=== PATIENT | female | born 1945 | race Caucasian/White ===

== ENCOUNTER 2020-05-17 10:26 | Outpatient (CLI) | payer MEDICARE, SELFPAY ==
--- NOTE | 2020-05-17 10:33 | USCV_ITS ---
Valerie Umana Age: 74 Gender: F : 1945 Exam Date: 05/17/2020 10:54 Ordering Phys: Brandy Miller Technologist: Darius Blanco [place] [facility] [place]: chest pain BP: 130 / 80 HR: 54 Rhythm: Sinus Technical Quality: Adequate MEASUREMENTS (Male / Female) Normal Values 2D ECHO LV Diastolic Diameter PLAX 4.1 cm 4.2 - 5.9 / 3.9 - 5.3 cm LV Systolic Diameter PLAX 2.5 cm IVS Diastolic Thickness 1.2 cm 0.6 - 1.0 / 0.6 - 0.9 cm IVS Systolic Thickness 1.5 cm LVPW Diastolic Thickness 1.0 cm 0.6 - 1.0 / 0.6 - 0.9 cm LVPW Systolic Thickness 1.3 cm LVOT Diameter 2.1 cm LV Ejection Fraction 2D Teich 71.3 % LV Ejection Fraction MOD 2C 64.2 % LV Ejection Fraction 2C AL 65.0 % LA Diameter 4.3 cm LA Width 3.5 cm LA Height 5.3 cm RA Width 3.9 cm RA Height 4.6 cm Aorta at Sinotubular Diameter 2.9 cm M-MODE LV Diastolic Diameter MM 5.3 cm 4.2 - 5.9 / 3.9 - 5.3 cm LV Systolic Diameter MM 3.2 cm LV Ejection Fraction MM Teich 70.4 % IVS Diastolic Thickness MM 1.1 cm 0.6 - 1.0 / 0.6 - 0.9 cm IVS Systolic Thickness MM 1.6 cm LVPW Diastolic Thickness MM 1.4 cm 0.6 - 1.0 / 0.6 - 0.9 cm LVPW Systolic Thickness MM 1.9 cm RV Diastolic Diameter MM 1.4 cm Aortic Annulus Diameter 2.7 cm LA Ao Ratio MM 1.6 MV E Point Septal Separation 1.2 cm DOPPLER AV Peak Velocity 139.0 cm/s LVOT Peak Velocity 138.0 cm/s AV Area Cont Eq vti 3.4 cm squared AV Area Cont Eq pk 3.4 cm squared MV Peak Velocity 102.0 cm/s MV Area PHT 2.7 cm squared Mitral E to A Ratio 0.6 MV E' Velocity 8.0 cm/s Mitral E to MV E' Ratio 8.9 Mitral E to LV E' Lateral Ratio 7.5 Mitral E to LV E' Septal Ratio 11.1 TR Peak Velocity 243.0 cm/s TR Peak Gradient 23.6 mmHg PV Peak Velocity 108.0 cm/s FINDINGS Left Ventricle Normal left ventricular size and systolic function, EF 64 %. No regional wall motion abnormalities. Grade I/IV diastolic dysfunction (abnormal relaxation filling pattern), normal to mildly elevated filling pressures. Mild left ventricular hypertrophy. Right Ventricle Normal right ventricular size and systolic function. Right Atrium Mildly increased right atrial size. Left Atrium Mildly increased left atrial size. Mitral Valve Trace to mild mitral valve regurgitation. Thickened mitral valve. Aortic Valve Thickened aortic valve. Tricuspid Valve No gross abnormalities noted Pulmonic Valve No gross abnormalities noted Pericardium No pericardial effusion. Aorta Normal aortic annulus size. CONCLUSIONS Normal left ventricular size and systolic function, EF 64 %. No regional wall motion abnormalities. Grade I/IV diastolic dysfunction (abnormal relaxation filling pattern), normal to mildly elevated filling pressures. Mild left ventricular hypertrophy. Mild biatrial enlargement Thickened aortic and mitral valves. Trace to mild mitral valve regurgitation. There is no pericardial effusion. There are no intracardiac masses. Comparison with the previous study is difficult because of the difference in the technical quality. Dr Giana Urrutia MD [facility] (Electronically Signed) Final Date: 17 May 2020 23:17 S
== END 2020-05-17 10:27 | disposition home or self-care (01) ==
LOC: RAD 10:32
PROVIDERS: PCP Physician Assistant; Visit Provider Physician Assistant
DX: R60.9 Edema, unspecified (principal); R07.9 Chest pain, unspecified; I08.0 Rheumatic disorders of both mitral and aortic valves
CPT/HCPCS: 93306

== ENCOUNTER 2020-06-29 17:54 | Emergency (ER) | payer MEDICARE, SELFPAY ==
[2020-06-29 18:01] VITALS: BP 161/101; PULSE 71; RESP 18; TEMP 36.2; O2SAT 95; BMI 35.6
--- NOTE | 2020-06-29 18:06 | XR_ITS ---
WS: [id number] Portable AP upright chest, 06/29/2020 Clinical Data: htn Comparison: Portable chest, 07/12/2018. Findings: No nodules, masses or effusions are seen. The heart is normal. The pulmonary vascularity is not increased. No pneumonia or pneumothorax is seen. The aortic arch and descending aorta show minim al tortuosity. There is an orthopedic anchor in the right humeral head. XR/XR chest 1V portable [id number] Impression: Atherosclerosis.
--- NOTE | 2020-06-29 18:07 | ECG_ITS ---
[facility] Test Date: 2020-06-29 Pat Name: Valerie Umana Department: Room: Gender: Female [place] Nurse: : 1945 Requested By: Gia Thomas Order Number: [id number] Laci MD: Flora Mi M.D. Measurements Intervals [place] Rate: 66 P: 29 TX: 165 QRS: 24 QRSD: 96 T: 38 QT: 398 QTc: 419 Interpretive Statements SINUS RHYTHM Compared to ECG 07/12/2018 20:15:51 No significant changes Electronically Signed On 06-29-2020 18:51:22 CDT by Flora Mi M.D. [id number]
--- NOTE | 2020-06-29 18:15 | ED_ITS ---
HPI - General Adult General: Chief complaint: General Medical Stated complaint: high bp Time Seen by Provider: 06/29/20 18:05 History of Present Illness: HPI narrative: This patient is a 75-year-old female who is very active. 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 She thought she just gotten too hot in the clients house and went on and did the rest of her visits that day. When she got home she was standing in her kitchen making a cheesecake when she again felt very weak and like she was going to pass out. She sat down quickly and was able to avoid passing out. She got her blood pressure cuff and checked her blood pressure. She was alarmed that it was 178/100. She went to the urgent care at [facility] where she also goes for primary care and they sent her to the ER. She has a history of 2 stents that were placed a couple of years ago. She said with that she presented with vague symptoms and not chest pain. She denies any chest pain, shortness of breath, vomiting, fevers today. Associated symptoms: Deny chest pain, dyspnea, headache(s), malaise, nausea, rash or vomiting Review of Systems General: Reports: 10 or more systems reviewed and unremarkable except in HPI and below Const: Reports: fatigue; Denies: fever(s), chills or malaise Eyes: Denies: change in vision ENMT: Denies: odynophagia Card: Denies: chest pain or swelling of feet/ankles Resp: Denies: dyspnea, productive cough or non-productive cough GI: Denies: abdominal pain, nausea or vomiting : Denies: flank pain or difficulty voiding Musc: Denies: neck pain or back pain Skin/Breast: Denies: rash Neuro: Reports: weakness in extremities; Denies: headache(s) or numbness in extremities [place]/Lymph: Denies: easy bruising or easy bleeding Physical Exam Const: COMMON NORMALS: no acute distress, patient oriented x3, no limitations and alert GENERAL APPEARANCE: cooperative and comfortable HENMT: HEAD & SCALP: normal to inspection FACE & SINUS: normal facial exam Eye: GENERAL EYE: appearance normal, both eyes and all related structures Neck/C-Spine: COMMON NORMALS: supple, no meningeal signs and no JVD Chest: COMMONS NORMALS: normal inspection of the chest Resp: COMMON NORMALS: normal respiratory effort, No use of accessory muscles and clear to auscultation bilaterally AUSCULTATION: clear to auscultation bilaterally Cardio: COMMON NORMALS: no JVD, regular rate, regular rhythm and No murmurs present (Cardio) RATE: regular rate RHYTHM: regular rhythm GI: COMMON NORMALS: Normal to inspection, nondistended, normoactive bowel sounds present, Soft to palpation and non-tender INSPECTION: Yes normal to inspection AUSCULTATION: Yes normoactive bowel sounds PALPATION: Yes Soft to palpation Back/Pelvis: COMMON NORMALS: thoracic and lumbar spine normal to inspection Extremity: COMMON NORMALS: normal to inspection Neuro: COMMON NORMALS: patient oriented x3, moves all extremities, no focal motor deficits and no sensory deficits noted SENSORIUM/ORIENTATION: Yes alert MENINGEAL SIGNS: Yes no meningeal signs Psych: COMMON NORMALS: mental status grossly normal, cooperative and normal affect Skin: COMMON NORMALS: no rashes or lesions noted and turgor normal GENERAL SKIN EXAM: no rashes or lesions noted and turgor normal Course ED course: Work-up was unremarkable on this patient. There is no evidence that there is any cardiac ischemia. Her blood pressure was elevated on initial presentation but came down and she was in the ED. The rest of her vital signs were good. We discussed that she might need to rest a little more often and to make sure that she is drinking plenty of fluids. She was able to ambulate around the ED without any difficulty. She will follow-up closely with her primary care doctor for further evaluation of these episodes and will return to the ED if worse anyway. Vital Signs: Vital signs: Vital Signs Temperature 97.2 F L 06/29/20 18:01 Pulse Rate 63 06/29/20 21:06 Respiratory Rate 14 06/29/20 21:06 Blood Pressure 131/85 06/29/20 21:06 Pulse Oximetry 95 06/29/20 21:06 MDM - General Adult Lab Data: Labs: Lab Results 06/29/20 06/29/20 06/29/20 Range/Units 18:30 18:30 18:30 WBC 8.9 (4.0-10.0) 10^3/ uL RBC 4.35 (4.1-5.3) 10^6/u L Hgb 13.2 (11.5-15.3) g/dL Hct 40.8 (37.0-47.0) % MCV 93.8 (81-99) fL MCH 30.3 (28.0-34.0) pg MCHC 32.4 (30.0-36.0) g/dL RDW 12.3 (12.1-15.1) % Plt Count 230 (130-400) 10^3/c mm MPV 10.0 (7.4-10.4) fL Neut % (Auto) 75.1 % Lymph % (Auto) 14.6 % [place] % (Auto) 7.6 % Eos % (Auto) 1.8 % Baso % (Auto) 0.7 % Neut # (Auto) 6.70 (1.8-7.7) 10^3/u L Lymph # (Auto) 1.3 (0.8-4.8) 10^3/u L [place] # (Auto) 0.7 (0.2-0.9) 10^3/u L Eos # (Auto) 0.2 (0.0-0.8) 10^3/u L Baso # (Auto) 0.1 (0.0-0.1) 10^3/u L Nucleated RBC % (a uto) 0 % Nucleated RBCs # 0.0 /100WBC Sodium 139 (136-145) mmol/L Potassium 4.0 (3.5-5.1) mmol/L Chloride 103 (98-107) mmol/L Carbon Dioxide 24 (22-29) mmol/L Anion Gap 16.0 (5-19) BUN 9 (8-23) mg/dL Creatinine 0.6 (0.5-0.9) mg/dL GFR Calculation Not Reportable Glucose 107 (65-115) mg/dL Calculated Osmolal ity 284 L (285-295) mOsm/k g Calcium 9.4 (8.5-10.5) mg/dL Total Bilirubin 0.3 (0.15-1.2) mg/dL AST 20 (0-32) U/L ALT 17 (0-33) U/L Alkaline Phosphata se 75 (35-105) IU/L Troponin T Baselin e 8 (0-10) ng/L Troponin T 120 Min torres martinez (0-10) ng/L Delta Troponin T (0-10) ABS# Total Protein 7.9 (6.6-8.7) g/dL Albumin 4.7 (3.5-5.2) g/dL Globulin 3.2 (1.3-4.6) g/dL 06/29/20 Range/Units 20:05 WBC (4.0-10.0) 10^3/ uL RBC (4.1-5.3) 10^6/u L Hgb (11.5-15.3) g/dL Hct (37.0-47.0) % MCV (81-99) fL MCH (28.0-34.0) pg MCHC (30.0-36.0) g/dL RDW (12.1-15.1) % Plt Count (130-400) 10^3/c mm MPV (7.4-10.4) fL Neut % (Auto) % Lymph % (Auto) % [place] % (Auto) % Eos % (Auto) % Baso % (Auto) % Neut # (Auto) (1.8-7.7) 10^3/u L Lymph # (Auto) (0.8-4.8) 10^3/u L [place] # (Auto) (0.2-0.9) 10^3/u L Eos # (Auto) (0.0-0.8) 10^3/u L Baso # (Auto) (0.0-0.1) 10^3/u L Nucleated RBC % (a uto) % Nucleated RBCs # /100WBC Sodium (136-145) mmol/L Potassium (3.5-5.1) mmol/L Chloride (98-107) mmol/L Carbon Dioxide (22-29) mmol/L Anion Gap (5-19) BUN (8-23) mg/dL Creatinine (0.5-0.9) mg/dL GFR Calculation Glucose (65-115) mg/dL Calculated Osmolal ity (285-295) mOsm/k g Calcium (8.5-10.5) mg/dL Total Bilirubin (0.15-1.2) mg/dL AST (0-32) U/L ALT (0-33) U/L Alkaline Phosphata se (35-105) IU/L Troponin T Baselin e (0-10) ng/L Troponin T 120 Min torres martinez 7.26 (0-10) ng/L Delta Troponin T -0.74 L (0-10) ABS# Total Protein (6.6-8.7) g/dL Albumin (3.5-5.2) g/dL Globulin (1.3-4.6) g/dL Discharge Plan Discharge Patient Disposition: Home Condition: Stable Prescriptions: No Action lisinopril See Rx Instructions .ROUTE .COMPLEX RF: 0 Aspirin Low Dose 81 mg Tablet,Delayed Release (Dr/Ec) 81 mg PO DAILY RF: 0 Multiple Vitamin, Womens Tablet 1 tab PO DAILY RF: 0 Probiotic 15 billion cell Capsule 1 cap PO DAILY RF: 0 Discharge Orders: Discharge Order (Routine); Ordered 06/29/20 Ordered By: Gia Burgos Referrals: Brandy Miller PA [Primary Care Provider] - Discharge Diet: Usual diet Discharge Activity: Resume usual activity Patient Instructions: Chronic Hypertension (ED), Near Syncope (ED) Activity Restrictions/Additional Instructions: Rest more than usual. Make sure you are drinking enough fluids. Follow-up with your primary care provider within the next few days. Return to the ED if you have any further symptoms or episodes of nearly passing out. Continue your regular blood pressure medicine for now. 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
[2020-06-29 18:39] LABS: Basophils # 0.1 10^3/uL (0.0-0.1); Basophils % 0.7 %; Eosinophils # 0.2 10^3/uL (0.0-0.8); Eosinophils % 1.8 %; Hematocrit 40.8 % (37.0-47.0); Hemoglobin 13.2 g/dL (11.5-15.3); Lymphocytes # 1.3 10^3/uL (0.8-4.8); Lymphocytes % 14.6 %; Mean Corpuscular HGB Conc 32.4 g/dL (30.0-36.0); Mean Corpuscular Hemoglobin 30.3 pg (28.0-34.0); Mean Corpuscular Volume 93.8 fL (81-99); Monocytes # 0.7 10^3/uL (0.2-0.9); Monocytes % 7.6 %; Neutrophils % 75.1 %; Nucleated Red Blood Cells % 0 %; Platelet Count 230 10^3/cmm (130-400); Red Blood Count 4.35 10^6/uL (4.1-5.3); Red Cell Distribution Width 12.3 % (12.1-15.1); White Blood Count 8.9 10^3/uL (4.0-10.0)
[2020-06-29 19:03] VITALS: BP 133/74; PULSE 74; RESP 14; O2SAT 97
[2020-06-29 19:05] LABS: Alanine Aminotransferase 17 U/L (0-33); Albumin Level 4.7 g/dL (3.5-5.2); Alkaline Phosphatase 75 IU/L (35-105); Aspartate Amino Transferase 20 U/L (0-32); Blood Urea Nitrogen 9 mg/dL (8-23); Calcium 9.4 mg/dL (8.5-10.5); Carbon Dioxide 24 mmol/L (22-29); Chloride 103 mmol/L (98-107); Globulin 3.2 g/dL (1.3-4.6); Glucose 107 mg/dL (65-115); Osmolality Calculated 284 mOsm/kg (285-295); Sodium 139 mmol/L (136-145); Total Bilirubin 0.3 mg/dL (0.15-1.2); Total Protein 7.9 g/dL (6.6-8.7)
[2020-06-29 19:06] LABS: Troponin(5th) Baseline 8 ng/L (0-10)
[2020-06-29 20:20] VITALS: BP 134/89; PULSE 74; RESP 14; O2SAT 96
[2020-06-29 20:32] LABS: Troponin 5 2HR 7.26 ng/L (0-10)
[2020-06-29 20:49] LABS: Troponin 5 2HR Delta -0.74 ABS# (0-10)
[2020-06-29 21:06] VITALS: BP 131/85; PULSE 63; RESP 14; O2SAT 95
== END 2020-06-29 21:07 | disposition home or self-care (01) ==
PROVIDERS: Emergency Provider Emergency Medicine; PCP Physician Assistant
DX: I10 Essential (primary) hypertension (principal); Z79.82 Long term (current) use of aspirin
CPT/HCPCS: 12345; 36415; 71045; 80053; 84484; 85025; 93005; 99282; 99284

== ENCOUNTER 2022-04-06 07:42 | Outpatient (CLI) | payer MEDICARE, SELFPAY ==
--- NOTE | 2022-04-06 07:59 | MM_ITS ---
WS: [id number] VIEWS: MLO and CC views both breasts. 3D digital tomosynthesis is also included in this exam. Comparison made with prior exam of 10/05/2014, 11/23/2015, 12/05/2016, 02/10/2019. Findings: There was no sign of mass, architectural distortion or suspicious calcification in either breast. Fa [place]ty MM/[place] [id number] Impression: BI-RADS: 2-Benign FOLLOW-UP: 1 Year Follow-up This mammogram was also analyzed by the Computer Aided Detection System R2 Imag e House Supervisor.
== END 2022-04-06 07:43 | disposition home or self-care (01) ==
LOC: RAD 07:43
PROVIDERS: PCP Physician Assistant; Visit Provider Physician Assistant
DX: Z12.31 Encounter for screening mammogram for malignant neoplasm of breast (principal)
CPT/HCPCS: 77063; 77067

== ENCOUNTER → 2023-07-15 09:51 | Outpatient (BNVA) | payer MEDICARE, SELFPAY | PROVIDERS: PCP Physician Assistant; Visit Provider Nurse Practitioner Family | DX: J02.9 Acute pharyngitis, unspecified (principal); J06.9 Acute upper respiratory infection, unspecified | CPT/HCPCS: 87880 ==

== ENCOUNTER → 2025-06-29 07:37 | Outpatient (BNVA) | payer MEDICARE, SELFPAY | PROVIDERS: PCP Physician Assistant; Visit Provider Orthopaedic Surgery | DX: Z95.5 Presence of coronary angioplasty implant and graft (principal); S79.812A Other specified injuries of left hip, initial encounter; W01.0XXA Fall on same level from slipping, tripping and stumbling without subsequent striking against object, initial encounter | CPT/HCPCS: 99204 ==

== ENCOUNTER 2025-07-07 12:44 | Outpatient (RCR) | payer MEDICARE, SELFPAY | END 2025-07-27 23:59 | disposition home or self-care (01) | LOC: SPT 12:44 | PROVIDERS: Visit Provider Orthopaedic Surgery | DX: M62.81 Muscle weakness (generalized) (principal); M54.59 Other low back pain | CPT/HCPCS: 97161 ==

== ENCOUNTER 2025-10-22 22:31 | Inpatient (IN) | payer MEDICARE, SELFPAY ==
[2025-10-22 22:33] VITALS: PULSE 115; RESP 27; TEMP 36.5; O2SAT 92; BMI 35.6
--- NOTE | 2025-10-22 22:33 | W.ED.GENADLT ---
HPI - General Adult General: Chief complaint: Dizziness Stated complaint: N/V/D History of Present Illness: 80-year-old female presents emergency room with complaint of cough wheezing congestion nausea vomiting last several days. She has had some dark stools no dark vomitus no hematochezia or hematemesis that she has noted she has a history of atrial fibrillation she is not currently on any direct anticoagulants. She is on aspirin and Plavix. She generally has not felt well about 4 days ago she was seen in urgent care clinic they prescribed an antibiotic but she had not started it yet because she was concerned she may be allergic to it. She has not had any hematemesis. Patient normally is not on any oxygen and is now requiring 2 L. Associated symptoms: Reports nausea and vomiting; Deny chest pain, dyspnea or rash Related Data Home Medications ?Medication ?Instructions ?Recorded ?Confirmed aspirin 81 mg tablet,delayed 81 mg PO DAILY 06/29/20 10/23/25 release (Autumn Low Dose Aspirin) lisinopril 10 mg tablet 10 mg PO DAILY 10/18/25 10/23/25 Held on 10/25/25. Instructions: Resume on 10/28/25. Hold in the setting of hypotension, resume under the direction of primary care provider. clopidogrel 75 mg tablet 75 mg PO DAILY 10/23/25 10/23/25 escitalopram oxalate 20 mg tablet 20 mg PO DAILY 10/23/25 10/23/25 furosemide 20 mg tablet 20 mg PO DAILY 10/23/25 10/23/25 Held on 10/25/25. Instructions: Resume on 10/28/25. Resume as directed under the care of primary care provider metoprolol succinate 100 mg 100 mg PO DAILY 10/23/25 10/23/25 tablet,extended release 24 hr rosuvastatin 10 mg tablet 10 mg PO BEDTIME 10/23/25 10/23/25 trazodone 50 mg tablet 50 mg PO BEDTIME 10/23/25 10/23/25 Previous Rx's ?Medication ?Instructions ?Recorded cefdinir 300 mg capsule 300 mg PO BID 10 days #20 caps 10/18/25 promethazine-DM 6.25 mg-15 mg/5 mL 10 ml PO Q6H PRN cough #200 mL 10/18/25 oral syrup ascorbic acid (vitamin C) 500 mg 500 mg PO DAILY 30 days #30 tabs 10/25/25 tablet (Vitamin C) zinc gluconate 50 mg tablet 50 mg PO DAILY 30 days #30 tabs 10/25/25 Allergies Allergy/AdvReac Type Severity Reaction Status Date / Time Penicillins Allergy ALGY-Hives Verified 10/18/25 12:22 Review of Systems Const: Denies: fever(s) or chills Card: Denies: chest pain Resp: Denies: dyspnea GI: Reports: abdominal pain, nausea and vomiting : Denies: dysuria, urinary frequency or urinary urgency Musc: Denies: neck pain or back pain Skin/Breast: Denies: rash PFS ED PFSH: Medical History Hyperlipidemia Family History Mother Breast cancer Grandmother Breast cancer Daughter Cancer Social History Smoking and tobacco/nicotine status: former use of tobacco/nicotine Physical Exam Const: GENERAL APPEARANCE: cooperative ORIENTATION/CONSCIOUSNESS: Yes awake, Yes oriented to person, Yes oriented to place and Yes oriented to time HENMT: COMMON NORMALS: normocephalic, atraumatic and hearing grossly normal bilaterally HEAD & SCALP: normocephalic and atraumatic Resp: COMMON NORMALS: normal respiratory effort, No retractions and No use of accessory muscles AUSCULTATION: wheezes Cardio: COMMON NORMALS: regular rate, regular rhythm and No murmurs present (Cardio) RATE: regular rate RHYTHM: regular rhythm GI: COMMON NORMALS: Soft to palpation and No hepatosplenomegaly present AUSCULTATION: Yes normoactive bowel sounds PALPATION: Yes Soft to palpation, No Tenderness to palpation present (GI), No Guarding due to palpation present (GI) and Yes No hepatosplenomegaly present Extremity: COMMON NORMALS: normal to inspection, capillary refill normal, no clubbing, cyanosis or edema, no calf tenderness and no pedal edema Neuro: SENSORIUM/ORIENTATION: Yes oriented to person, Yes oriented to place and Yes oriented to time Skin: COMMON NORMALS: no rashes or lesions noted GENERAL SKIN EXAM: no rashes or lesions noted Course Vital Signs: Vital signs: Vital Signs Temperature 97.8 F 10/25/25 12:40 Pulse Rate 65 10/25/25 12:40 Respiratory Rate 17 10/25/25 12:40 Blood Pressure 119/79 10/25/25 12:40 Pulse Oximetry 95 10/25/25 12:40 Oxygen Delivery Me thod Nasal Cannula 10/25/25 11:19 Oxygen Flow Rate 3 10/24/25 19:42 MDM - General Adult Medical Decision Making 1 week after onset of symptoms patient now requiring oxygen. No sign of infiltrates on her x-ray. White count is normal chemistry panel is unremarkable. Blood cultures collected. Will admit the patient to she tested positive for influenza and is now requiring supplemental oxygen. Discussed with hospitalist orders written Medical Records I reviewed the patient's medical records. Lab Data I reviewed the patient's lab results. 10/24/25 05:43 10/24/25 05:43 Radiology Impressions Chest X-Ray 10/22/25 22:38 IMPRESSION: No acute findings. Chest CTA 10/23/25 00:32 IMPRESSION: 1. Negative for pulmonary artery embolism. 2. Consider mild nonspecific bronchial inflammatory changes. Abdomen/Pelvis CT 10/23/25 01:20 IMPRESSION: Negative for acute abdominopelvic pathology. Laboratory Results WBC 5.50 10^3/uL (3.29-11.43) 10/22/25 22:00 RBC 5.69 10^6/uL (3.85-5.65) H 10/22/25 22:00 Hgb 17.00 g/dL (11.27-16.99) H 10/22/25 22:00 Hct 50.3 % (36-47) H 10/22/25 22:00 MCV 88.4 fl (85-98) 10/22/25 22:00 MCH 29.9 pg (27-33) 10/22/25 22:00 MCHC 33.8 g/dL (30-55) 10/22/25 22:00 RDW 12.6 % (12.1-15.1) 10/22/25 22:00 Plt Count 166 10^3/cmm (157-399) 10/22/25 22:00 MPV 11.3 fL (7.4-10.4) H 10/22/25 22:00 Neut % (Auto) 82.0 % 10/22/25 22:00 Lymph % (Auto) 10.7 % 10/22/25 22:00 [place] % (Auto) 6.2 % 10/22/25 22:00 Eos % (Auto) 0.2 % 10/22/25 22:00 Baso % (Auto) 0.2 % 10/22/25 22:00 Neut # (Auto) 4.51 10^3/uL (1.8-7.7) 10/22/25 22:00 Lymph # (Auto) 0.6 10^3/uL (0.8-4.8) L 10/22/25 22:00 [place] # (Auto) 0.3 10^3/uL (0.2-0.9) 10/22/25 22:00 Eos # (Auto) 0.0 10^3/uL (0.0-0.8) 10/22/25 22:00 Baso # (Auto) 0.0 10^3/uL (0.0-0.1) 10/22/25 22:00 Nucleated RBC % (auto) 0 % 10/22/25 22:00 Nucleated RBCs # 0.0 /100WBC 10/22/25 22:00 Sodium 138 mmol/L (136-145) 10/22/25 23:13 Potassium 4.0 mmol/L (3.5-5.1) 10/22/25 23:13 Chloride 95 mmol/L (98-107) L 10/22/25 23:13 Carbon Dioxide 27 mmol/L (22-29) 10/22/25 23:13 Anion Gap 20.0 (5-19) H 10/22/25 23:13 BUN 11 mg/dL (8-23) 10/22/25 23:13 Creatinine 0.9 mg/dL (0.5-0.9) 10/22/25 23:13 GFR Calculation Not Reportable 10/22/25 23:13 Glucose 156 mg/dL (65-115) H 10/22/25 23:13 Calculated Osmolality 289 mOsm/kg (285-295) 10/22/25 23:13 Lactic Acid 2.6 mmol/L (0.5-2.2) H 10/22/25 23:13 Calcium 9.3 mg/dL (8.5-10.5) 10/22/25 23:13 Total Bilirubin 0.5 mg/dL (0.15-1.2) 10/22/25 23:13 AST 29 U/L (0-32) 10/22/25 23:13 ALT 14 U/L (0-33) 10/22/25 23:13 Alkaline Phosphatase 67 U/L (35-105) 10/22/25 23:13 Total Protein 7.5 g/dL (6.6-8.7) 10/22/25 23:13 Albumin 4.2 g/dL (3.5-5.2) 10/22/25 23:13 Globulin 3.3 g/dL (1.3-4.6) 10/22/25 23:13 Lipase 15 U/L (13-60) 10/22/25 23:13 Influenza A (PCR) Positive (Negative) 10/23/25 00:04 Influenza Type B (PCR) Negative (Negative) 10/23/25 00:04 RSV (PCR) Negative (Negative) 10/23/25 00:04 SARS-CoV-2 (PCR) Negative (Negative) 10/23/25 00:04 All radiology interpretation(s) finalized by discharge EKG Data EKG 1: I personally reviewed and interpreted this EKG as follows: Interpretation: EKG 10/23/2025 0 1:27 AM atrial fibrillation rate of 96. QTc 486. No acute ST changes noted compared to EKG 06/29/2020 previously was in sinus rhythm Computer generated interpretation: Chest X-Ray 10/22/25 22:38 IMPRESSION: No acute findings. Chest CTA 10/23/25 00:32 IMPRESSION: 1. Negative for pulmonary artery embolism. 2. Consider mild nonspecific bronchial inflammatory changes. Abdomen/Pelvis CT 10/23/25 01:20 IMPRESSION: Negative for acute abdominopelvic pathology. EKG 2: I personally reviewed and interpreted this EKG as follows: Interpretation: EKG 10/23/2025 0 2:26 AM atrial fibrillation nonspecific ST changes rate of 94 QTc 462 compared to EKG done earlier same day no significant change Computer generated interpretation: Chest X-Ray 10/22/25 22:38 IMPRESSION: No acute findings. Chest CTA 10/23/25 00:32 IMPRESSION: 1. Negative for pulmonary artery embolism. 2. Consider mild nonspecific bronchial inflammatory changes. Abdomen/Pelvis CT 10/23/25 01:20 IMPRESSION: Negative for acute abdominopelvic pathology. Discharge Plan Discharge Patient Disposition: Admitted As Inpatient Admit Provider: Juan M Taveras Clinical Impression: Acute hypoxic respiratory failure, Influenza A Condition: Stable Coding Level of Care Code ED Mental Health Clinician for Nasir Hector
--- NOTE | 2025-10-22 22:38 | XRR_ITS ---
PROCEDURE INFORMATION: Exam: XR Chest Exam date and time: 10/22/2025 10:41 PM Age: 80 years old Clinical indication: Shortness of breath; C/O SOB with hypoxia; Additional info: Dyspnea/cough TECHNIQUE: Imaging protocol: Radiologic exam of the chest. Views: 1 view. COMPARISON: CR XR chest 1V portable [id number] 06/29/2020 6:31 PM FINDINGS: Lungs: Unremarkable. No consolidation. Pleural spaces: Unremarkable. No pleural effusion. No pneumothorax. Heart/Mediastinum: Unremarkable. No cardiomegaly. Bones/joints: Unremarkable. XR/XR chest 1V portable [id number] IMPRESSION: No acute findings.
--- OUTSIDE RECORDS SUMMARY | 2025-10-22 22:41 | XMS_ITS | Data Portability ---
Author Organization MAHESH [facility], [place], [facility] Address [address] [address] Assessment Encounter Date Assessment Date Assessment LastModified by Organization Details LastModified Time 06/07/2025 06/07/2025 3 view xray left hip/pelvis- no fx, no dislocation, arthritis - independently viewed by [email or web address] Not available 06/07/2025 11:13:00 Plan of Treatment Reminders Order Date Submit Date Provider Last Modified By Organization Details Last Modified Time Details Appointments None recorded. Lab CMP, serum or plasma 2024 025 [facility], [address], [facility] 1, [place], [address], 17:09:25 CBC 2024 025 [facility], [address], [facility] 1, [place], [address], 16:26:18 thyrotropin , QN, serum or plasma 2024 025 [facility], [address], [facility] 1, [place], [address], 5 17:03:52 vitamin B12, serum 2024 025 [employer] [facility], [address] [facility] [address], [address] [place], [address], 5 05:27:06 vitamin D, 25-hydroxy, total, serum 2024 025 [place] [employer] [facility], [address], [address] [place], [address], 5 05:27:07 Referral orthopedic surgeon referral [address], [address] [place], [address], 5 13:23:45 Procedures None recorded. Surgeries None recorded. Imaging XR, hip + pelvis, unilateral, 2 or 3 view 2024 025 [facility] ([facility]), [address] [place], [address], 5 09:13:10 Medication Orders doxycycline hyclate 100 mg capsule 2024 025 [facility][id number], [address], [address], 05:01:35 benzonatate 200 mg capsule 2024 025 [facility][id number], [address] [facility] [address], [address], 5 16:07:07 diclofenac 1 % topical gel 2024 025 [facility] [place] [facility] #[id number], [address] [facility] [address], [address], 5 15:56:19 lisinopril 10 mg tablet 2024 025 [facility] [place] #[id number], [address] [facility] [address], [address], 5 15:56:19 cyclobenzap rine 10 mg tablet 2024 025 [id number], [address], [address], [place], [address], 5 16:41:40 clopidogrel 75 mg tablet 2024 025 [id number], [address] [facility] [address] [facility] [address], [address], [place], [address], 5 16:41:40 escitalopra m 20 mg tablet 2024 025 [id number], [address], [address], [place], [address], 5 16:41:39 metoprolol succinate ER 100 mg tablet,exte nded release 24 hr 2024 025 [id number], [address], [address], [place], [address], 5 16:41:40 rosuvastati n 10 mg tablet 2024 025 [id number], [address], [address], [place], [address], 5 16:41:41 trazodone 50 mg tablet 2024 025 [id number], [address], [address], [place], [address], 16:41:41 Patient TargetsNo targets recorded. Patient InstructionsNo instructions recorded. Reason for Referral Orthopedic Surgeon Referral for Pain of hip region Referring Physician: Brandy Miller, Family Medicine, Encounter Date: 06/08/2025 Results Created Date Observation Date Name Description Value Unit Range Abnormal Flag Note LastModifiedBy Organization Detail LastModifiedTime 05/13/20 25 05/13/2025 CBC WBC 7.7 x10 4.0-10 .5 Not Available [facility] [address], [place], [address], 05/13/2025 16:26:18 05/13/20 25 05/13/2025 CBC RBC 4.37 x10 3.50-5 .50 Not Available [facility] [address] [facility] [address], [place], [address], 05/13/2025 16:26:18 05/13/20 25 05/13/2025 CBC HGB 13.1 g/dL 12.0-1 6.0 Not Available [facility] [address], [place], [address], 05/13/2025 16:26:18 05/13/20 25 05/13/2025 CBC HCT 40.8 % 37.0-4 7.0 Not Available [facility] [address] [facility] [address], [place], [address], 05/13/2025 16:26:18 05/13/20 25 05/13/2025 CBC MCV 93.3 fL 80.0-9 9.9 Not Available [facility] [address] [facility] 1, [place], [address], 05/13/2025 16:26:18 05/13/20 25 05/13/2025 CBC MCH 30.0 pg 27.0-3 2.0 Not Available [facility] [address] [facility] [address], [place], [address], 05/13/2025 16:26:18 05/13/20 25 05/13/2025 CBC MCHC 32.1 g/dL 32.0-3 6.0 Not Available [facility] [address] [facility] 1, [place], [address], 05/13/2025 16:26:18 05/13/20 25 05/13/2025 CBC RDW 13.5 % 11.5-1 4.5 Not Available [facility] [address] [facility] 1, [place], [address], 05/13/2025 16:26:18 05/13/20 25 05/13/2025 CBC plt 200.1 x10 140.0- 451.0 Not Available [facility] [address] [facility], [place], [address], 05/13/2025 16:26:18 05/13/20 25 05/13/2025 CBC lymphocytes % 14.8 % 20.0-5 0.0 low Not Available [facility] [address] [address], [place], [address], 05/13/2025 16:26:18 05/13/20 25 05/13/2025 CBC granulcytes % 74.2 % 30.0-7 0.0 high Not Available [facility] [address] [facility] 1, [place], [address], 05/13/2025 16:26:18 05/13/20 25 05/13/2025 CBC monocytes % 8.2 % 2.0-16 .0 Not Available [facility] [address] [facility] 1, [place], [address], 05/13/2025 16:26:18 05/13/20 25 05/13/2025 CBC granulcytes# 5.7 x10 Not Carmel ilable [facility] [address] [address], [place], [address], 05/13/2025 16:26:18 05/13/20 25 05/13/2025 CBC lymphocytes # 1.1 x10 Not Available [facility] [address] [facility] [address] [facility] 1, [place], [address], 05/13/2025 16:26:18 05/13/20 25 05/13/2025 CBC monocytes # 0.6 x10 Not Avai lable [facility] [address] [facility] 1, [place], [address], 05/13/2025 16:26:18 05/13/20 25 05/13/2025 TSH TSH 2.13 uIU/m L 0.49-3 .82 Not Available [facility] [address] [facility] [facility] 1, [place], [address], 05/13/2025 17:03:52 05/13/20 25 05/13/2025 CMP (FEMA LE) glucose 107.0 mg/dL 60.0-9 9.0 high Not Available [facility] [address] [facility] [address] [facility], [place], [address], 05/13/2025 17:09:25 05/13/20 25 05/13/2025 CMP (FEMA LE) BUN (blood urea nitrogen) 10.0 mg/dL 10.0-2 6.0 Not Available [facility] [address] [facility], [place], [address], 05/13/2025 17:09:25 05/13/20 25 05/13/2025 CMP (FEMA LE) creatinine (serum) 0.6 mg/dL 0.4-1. 5 Not Available [facility] [address] [facility] [address] 1, [place], [address], 05/13/2025 17:09:25 05/13/20 25 05/13/2025 CMP (FEMA LE) BUN/creatini ne ratio 16.67 ratio Not Available [facility] [address] [facility] 1, [place], [address], 05/13/2025 17:09:25 05/13/20 25 05/13/2025 CMP (FEMA LE) eGFR calculated 102.2 Not Available [facility] [address] [facility] 1, [place], [address], 05/13/2025 17:09:25 05/13/2005/13/2025 CMP (FEMA LE) total protein 7.4 g/dL 6.0-8. 5 Not Available [facility] [address] [facility] [address] [facility] 1, [place], [address], 05/13/2025 17:09:25 05/13/2005/13/2025 CMP (FEMA LE) total bilirubin 0.5 mg/dL 0.2-1. 3 Not Available [facility] [address] [facility] [address] [facility] 1, [place], [address], 05/13/2025 17:09:25 05/13/2005/13/2025 CMP (FEMA LE) albumin 4.5 g/dL 3.5-5. 5 Not Available [facility] [address] [facility] 1, [place], [address], 05/13/2025 17:09:25 05/13/2005/13/2025 CMP (FEMA LE) globulin 2.9 calc Not Available [facility] [address] [facility] 1, [place], [address], 05/13/2025 17:09:25 05/13/2005/13/2025 CMP (FEMA LE) AST (SGOT) 34.0 U/L 0.0-46 .0 Not Available [facility] [address] [facility] 1, [place], [address], 05/13/2025 17:09:25 05/13/20 25 05/13/2025 CMP (FEMA LE) altv (SGPT) 18.0 U/L 13.0-6 9.0 normal Not Available [facility] [address] [facility] 1, [place], [address], 05/13/2025 17:09:25 05/13/20 25 05/13/2025 CMP (FEMA LE) A/G ratio 1.6 ratio Not Available [facility] [address] [facility], [place], [address], 05/13/2025 17:09:25 05/13/20 25 05/13/2025 CMP (FEMA LE) ALP phos 75.0 U/L 30.0-1 40.0 normal Not Available [facility] [address] [facility] 1, [place], [address], 05/13/2025 17:09:25 05/13/20 25 05/13/2025 CMP (FEMA LE) calcium 9.6 mg/dL 8.4-10 .5 Not Available [facility] [address] [facility], [place], [address], 05/13/2025 17:09:25 05/13/20 25 05/13/2025 CMP (FEMA LE) sodium 139.0 mmol/ L 136.0- 145.0 Not Available [facility] [address] [facility], [place], [address], 05/13/2025 17:09:25 05/13/20 25 05/13/2025 CMP (FEMA LE) potassium 3.9 mmol/ L 3.5-5. 1 Not Available [facility] [address] [facility], [place], [address], 05/13/2025 17:09:25 05/13/20 25 05/13/2025 CMP (FEMA LE) chloride 101.0 mmol/ L 98.0-1 10.0 normal Not Available [facility] [address] [facility] [address] 1, [place], [address], 05/13/2025 17:09:25 05/13/20 25 05/13/2025 CMP (FEMA LE) C02 31.0 mmol/ L 22.0-3 1.0 Not Available [facility] [address] [facility] [address], [place], [address], 05/13/2025 17:09:25 05/13/20 25 05/13/2025 CMP (FEMA LE) anion gap 7.0 calc Not Available [facility] [address] [facility] [address], [place], [address], 05/13/2025 17:09:25 05/13/20 25 05/13/2025 CMP (FEMA LE) osmolality 286.7 calc Not Available [facility] [address] [facility] 1, [place], [address], 05/13/2025 17:09:25 05/13/2005/14/2025 VITAM IN B12 vitamin B12 412 pg/mL 200-11 00 normal Not Available [employer] [facility] [address] [place], [address], 05/14/2025 05:27:06 05/13/2005/14/2025 VITAM IN D,25- OH,TO KATIE,I A vitamin D,25-oh,tota l,ia 35 NG/mL 30-100 normal Vitam in D Statu s 25-OH Vitam in D: Defic iency : <20 ng/mL Insuf ficie ncy: 20 - 29 ng/mL Optim al: > or = 30 ng/mL For 25-OH Vitam in D testi ng on patie nts on D2-xavier pplem entat ion and patie nts for whom quant itati on of D2 and D3 fract ions is requi red, the [employer] Assur eD(TM ) 25-OH VIT D, (D2,D 3), LC/MS /MS is recom tamela d: order code 35048 (maciel ents >2yrs ). See Note 1 Note 1 For addit ional infor sheyla segovia refer to http: //annamaria Kidd gnost ics.c om/fa q/FAQ 199 (This link is being provi ded for infor darron arambula/ antonia bello purpo ses only. ) Not Available [facility] [address], [place], [address], 05/14/2025 05:27:07 06/11/20 25 06/07/2025 XR, hip + pelvi s, unila teral , 2 or 3 view No observ ation record ed. [facility] [address] [place], [address], 06/13/2025 09:54:02 Result Notes None recorded. Problems Name Problem SNOMED Code Status Onset Date Resolution Date Notes Provider Name and Address Organization Details Recorded Time Edema 011283888 Completed 202102/27/2022 EDEMA - Status is Inactive ; Recorded 02/28/20 22 1:26PM by Brandy Miller PA-C, Annotati on/Adden dum; Promoted ; acuity set as *; Not Available [facility] 3 03:08:31 Coronary atherosc lerosis 281988116 Active 2021 CAD (CORONAR Y ATHEROSC LEROTIC DISEASE) ; Recorded 02/28/20 22 1:26PM by Brandy Miller PA-C, Office Visit; Promoted ; acuity set as *; YOAV [facility]ians[facility] 5 07:37:02 Hyperten sive disorder 02353685 Active 2022 HYPERTEN STEPHANIE, BENIGN; Recorded 12/12/19 23 4:36PM by Brandy Miller PA-C, Office Visit; Promoted ; acuity set as *; YOAV christiansen [facility] 5 07:37:16 Anxiety state 652220029 Active 2022 ANXIETY AND DEPRESSI ON; Recorded 12/12/19 23 4:36PM by Brandy Miller PA-C, Office Visit; Promoted ; acuity set as *; Y[facility]AV [facility] 5 07:36:53 Coronary artery bypass graft stent present 05578265038 9104 Active 2022 HISTORY OF HEART ARTERY STENT; Recorded 12/12/19 1:16PM by Brandy Miller PA-C, Annotati on/Adden dum; Promoted ; acuity set as *; Y[facility]AV [facility] 5 07:36:59 Hyperlip idemia 78803814 Active 2022 HYPERLIP IDEMIA; Recorded 12/12/19 4:35PM by Brandy Miller PA-C, Office Visit; Promoted ; acuity set as *; YOAV christiansen [facility] 5 07:37:13 Chronic low back pain 768965707 Active 2024 [facility] 07:37:36 Morbid obesity 565161327 Active 2024 [facility] 07:37:53 Depressi ve disorder 51434387 Active 2024 [facility] 5 07:38:22 Problem Notes None recorded. Procedures Surgical History Date Name Laterality Status Provider Name and Address Organization Details Recorded Time 06/10/2024 Joint Inj Kenalog- Shoulder, Hip, Knee completed BRANDY MILLER PA-C [address] [place] [address], [address], [facility] 07/06/2024 13:09:06 Imaging Results None recorded. Procedure Notes None recorded. Medical Equipment None Reported. Allergies Allergen ID Allergen Name Allergen Category Reaction Reaction Severity Criticality Documentation Date Start Date Code Code System Note Provider Name and Address Organization Details Recorded Time 52731 penicilli n G sodium medicatio n hives Not available Not available 05/25/2023 9900 RxNorm React ion: Hives , Rash; Comme nt: Recor ded 12/11 6:32A M by Reggie Carlos ner, [employer], Offic e Visit ; Promo nancy; Rashel soto ce: *; Reaso n: Drug aller gy; ; Not Available [facility] 3 02:29:43 Medications Name Sig Start Date Stop Date Status Note LastModified by Organization Details LastModified Time cyclobenzap rine 10 mg tablet Take 1 tablet every day by oral route at bedtime for 30 days. 2024 active Not Available Not Available Not Avai lable promethazin e-DM 6.25 mg-15 mg/5 mL oral syrup TAKE 5 ML BY MOUTH EVERY 8 HOURS NEEDED FOR 7 DAYS 06/10 completed Not Available Not Available Not Available doxycycline hyclate 100 mg capsule Take 1 capsule twice a day by oral route for 7 days. 07/22 completed Not Available Not Available Not Available trazodone 50 mg tablet Take 1 tablet every day by oral route for 30 days. 2024 active Not Available Not Available Not Avai lable benzonatate 200 mg capsule TAKE 1 CAPSULE 3 TIMES A DAY BY MOUTH NEEDED FOR COUGH. 08/17 completed Not Available Not Available Not Available fluorouraci l 5 % topical cream APPLY THIN LAYER TWICE DAILY TO LESIONS ON THE LEFT ANABAPTIST FOR 14 DAYS 11/12 completed Not Available Not Available Not Available metoprolol succinate ER 100 mg tablet,exte nded release 24 hr TAKE 1 TABLET EVERY DAY 2024 active Not Available Not Available Not Avai lable clopidogrel 75 mg tablet TAKE 1 TABLET EVERY DAY 2024 active Not Available Not Available Not Avai lable betamethaso ne acetate and sodium phos 6 mg/mL suspension for injection Take 6 mg every day by injection route for 1 day. 06/11 completed Not Available Not Available Not Available lisinopril 10 mg tablet TAKE 1 TABLET EVERY DAY 2024 active Not Available Not Available Not Avai lable furosemide 20 mg tablet TAKE 1 TABLET EVERY DAY 2024 active Not Available Not Available Not Avai lable loratadine 10 mg tablet TAKE 1 TABLET BY MOUTH EVERY DAY FOR 30 DAYS 11/12 completed Not Available Not Available Not Available escitalopra m 20 mg tablet TAKE 1 TABLET EVERY DAY. 2024 active Not Available Not Available Not Avai lable rosuvastati n 10 mg tablet TAKE 1 TABLET AT BEDTIME 2024 active Not Available Not Available Not Avai lable aspirin 81mg qd active Not Available Not Avai lable Not Available diclofenac 1 % topical gel APPLY 2 GRAMS TO THE AFFECTED AREA(S) BY TOPICAL ROUTE 4 TIMES PER DAY 2024 active Not Available Not Available Not Avai lable Vitals Date Recorded Body height Body mass index (BMI) Body weight Oxygen saturation Heart rate Respiratory rate Body temperature Systolic And Diastolic Provider Name and Address Organization Details Last Updated DateTime 5 160.02 cm 38.4 kg/m2 66023.5 4 g 97 % 70 /min 20 /min 97 [degF] 138/70 mm[Hg] [facility] 5 15:50:49 Date Recorded Body height Body mass index (BMI) Body weight Oxygen saturation Heart rate Respiratory rate Body temperature Systolic And Diastolic Provider Name and Address Organization Details Last Updated DateTime 5 160.02 cm 39.3 kg/m2 801811. 51 g 97 % 72 /min 18 /min 97.9 [degF] 140/80 mm[Hg] YOAV [facility] 5 15:11:55 Date Recorded Body height Body mass index (BMI) Body weight Respiratory rate Oxygen saturation Heart rate Body temperature Systolic And Diastolic Provider Name and Address Organization Details Last Updated DateTime 5 160.02 cm 39 kg/m2 93074.4 2 g 16 /min 96 % 82 /min 98.3 [degF] 144/80 mm[Hg] MAYLIN COTTRELL [facility] 5 10:15:53 Date Recorded Body height Body mass index (BMI) Body weight Oxygen saturation Heart rate Respiratory rate Body temperature Systolic And Diastolic Provider Name and Address Organization Details Last Updated DateTime 5 160.02 cm 39 kg/m2 59055.3 2 g 97 % 86 /min 18 /min 98 [degF] 140/80 mm[Hg] YOAV TAN [facility] 5 09:43:20 Date Recorded Body height Body mass index (BMI) Body weight Oxygen saturation Heart rate Body temperature Systolic And Diastolic Provider Name and Address Organization Details Last Updated DateTime 5 160.02 cm 38.6 kg/m2 67597.1 4 g 95 % 46 /min 98.3 [degF] 122/68 mm[Hg] Swathi Montilla [facility] 5 13:00:04 Social History Question Answer Notes LastModified by Organizat ion Details LastModified Time Tobacco Smoking Status Former Smoker quit over 30 years ago MAYLIN christiansen [facility] 06/07/2025 10:16:49 When Did You Quit Smoking? 15+yearssin naa cohen [email or web address] Information not available 06/07/2025 What Was The Date Of Your Most Recent Tobacco Screening? 06/07/2025 [email or web address] Information not available 06/07/2025 Sex: Unknown Functional Status Question Answer Note LastModified by Organization D etails LastModified Time Do you or have you ever used any other forms of tobacco or nicotine? No [email or web address] Information not available 06/07/2025 Do you or have you ever used any nicotine-free cigarettes, vape, or chewing tobacco? No [email or web address] Information not available 06/07/2025 Mental Status None recorded. Family History Nothing Reported. Medical History No medical history recorded. Gynecological HistoryNo gynecological history recorded. Obstetrics History GPAL:G 0 P 0 0 0 0 Immunizations Vaccine Type Date Status Note Provider Nam e and Address Organization Details Recorded Time Tdap 1 completed Not Available [facility] 05/25/2023 02:51:08 pneumococcal polysaccharide PPV23 0 completed Not Available [facility] 05/25/2023 02:51:09 Influenza, split virus, trivalent, preservative 1 completed Not Available [facility] 05/25/2023 02:51:09 Influenza, split virus, trivalent, preservative 0 completed Not Available [facility] 05/25/2023 02:51:09 Influenza, split virus, trivalent, preservative 3 completed Not Available [facility] 05/25/2023 02:51:09 Influenza, split virus, trivalent, preservative 5 completed Not Available [facility] 05/25/2023 02:51:09 Past Encounters Encounter ID Performer Location Encounter Start Date Encounter Closed Date Diagnosis/Indication Diagnosis SNOMED-CT Code Diagnosis ICD10 Code Diagnosis IMO Codes Diagnosis Note [id number] ANTOINETTE GOINS [facility] ([facility]) [address] [place] [address] 5 10/11/2023 10:57:36 10/11/2023 14:05:39 Cough 39937449 R05.9 Acute bronchitis 8299332 2 J20.9 [id number] BRANDY MILLER PA-C [facility] ([facility]) [address] [place] [id number] 06/10/2024 14:38:49 06/11/2024 12:48:31 Pain of left shoulder joint 1012672386 8715473 M25.512 Chronic low back pain 27 6993547 M54.50 Chronic insomnia 8450329 04 F51.04 Essential hypertension 96007643 I10 Hyperlipidemia 73129797 E78.5 Coronary atherosclerosis 071658540 I25.10 [id number] BRANDY MILLER PA-C [facility] ([facility]) [address] [place] [id number] 08/06/2024 09:59:15 08/06/2024 10:54:04 Acute bronchitis 97298487 J20.9 Pain of le ft hip joint 4517796394 40414 M25.661 [id number] BRANDY MILLER PA-C [facility] ([facility]) [address] [place] [id number] 11/12/2024 15:36:51 11/12/2024 16:58:37 Chronic insomnia 895877406 F51.04 Chronic low back pain 27 0073775 M54.50 Anxiety state 930996745 F41.1 Hyperlipidemia 91029064 E78.5 Essential hypertension 57467961 I10 CCA form filled out during today's office visit Coronary atherosclerosis 883181991 I25.10 Morbid obesity 550909370 E66.01 Depressive disorder 3548 9007 F33.1 [id number] BRANDY MILLER PA-C [facility] ([facility]) [address] [place] [id number] 5 05/13/2025 14:54:30 05/13/2025 16:49:03 Coronary atherosclerosis 901209215 I25.10 Essential hypertension 31458309 I10 Fatigue 10158753 R53.82 024769 Osteoarthr itis of joint of bilateral hands 5130557218 08126 M19.041 M19.042 14608731 Chronic low back pain 27 2997058 M54.50 G89.29 [id number] ANTOINETTE RANKIN ([facility]) [address] [place] [id number] 06/07/2025 09:52:39 06/07/2025 11:15:21 Accidental fall 633937558 W19.XXXA [id number] No acute fx on xray. pt states her PCP asked at her last visit if she was ready for a consult for a hip replacemen t. Pt states she is ready now! Discussed ice/heat, activity as tolerated, f/u with PCP. Pt has been using a heating pad and otc meds. [id number] BRANDY MILLER PA-C [facility] [facility]) [address] [place] [phone] 06/08/2025 09:31:54 06/08/2025 10:26:49 Pain of hip region [id number] M25.552 G89.29 [id number] acute on chronic with recent fall. no fx seen. advanced OA changes on Xraycontin ue with ice/heat, Tylenol prn. gentle stretches. [id number] ANTOINETTE RANKIN [facility]) [address] [place] [address] 07/08/2025 12:41:06 07/08/2025 13:15:18 Acute pansinusitis [id number] J01.40 [id number] Discussed use of antibiotic . Take with food.May use Fritz's nasal inserts and also apply on chest. Push oral fluids. Consider nasal saline rinses and otc decongesta nt.Use tylenol/mo vidhi for arellano. Health Concerns Section Related Observation LastModified by Organization Detai ls LastModified Time None Recorded Concern Status LastModified by Organization Details LastModified Time None Recorded Advance Directives Directive None Recorded Payers Insurance Date Sequence Insurance Name Policy Number Policy Douglas Covered Member ID Douglas Member ID Guarantor Name 11/12/2024 1 [employer] (MEDICARE REPLACEMENT/A DVANTAGE - PPO) Valerie L Lyndsay [id number] Valerie Martha Lyndsay 11/12/2024 1 [id number] Valerie Martha Umana [id number] Valerie L Lyndsay 07/08/2025 1 [place] - [place]) [id number] Maxine Lyndsay [id number] Valerie Martha Lyndsay Notes Date Note Type Note Provider Name and Address Organization Details Recorded Time 5 text/htm l Musculoskeletal PainReported by PatientHPIFor location, patient reportspain radiating to the legs leftbut reportsleft hip. For quality, patient reportssharp,tingling, anddull. For severity, patient reportsworsening. For duration, patient reportspresent <1 month. For timing, patient reportsconstant. For aggravating factors, patient reportsmovement/positioning, bending over, andtwisting. For adls affected, patient reportswalking,sweeping,mopp ing,bathing,dressing, andclimbing stairs. I need refills on trazadone and cyclobenzaprine. I need a form filled out so I can get 50.00 of month for groceries BRANDY MILLER PA-C [address] [place], [phone], [facility] [facility], [place] 11/12/2024 16:47:42 5 text/htm l Anxiety/DepressionReported by PatientHPIFor severity, patient reportsmood worseandincreased anxietybut reportsdenies suicidal ideations,able to maintain relationships, anddoes not interfere with activities of daily living. For context, patient reportschronic pain. For duration, patient reportschronic. For onset/timing, patient reportsgradual. For modifying factors, patient reportsmedications as directed. Back PainReported by PatientHPIFor location, patient reportsradiation to buttocks leftandradiation to leg leftbut reportslumbar left. For severity, patient reportsinterferes with sleepandinterferes with work. For quality, patient reportssharp,tingling,dull,s tiffness,throbbing,tender,pr essure, andburning. For duration, patient reports6 months. For timing, patient reportschronic. For alleviating factors, patient reportsnone. HypertensionReported by PatientHPIFor quality, patient reportspressureandweakness. For context, patient reportsexertion. For aggravating factors, patient reportsactivityandweight change. For associated symptoms, patient reportsshortness of breath,fatigue,exertional dyspnea, anddecreased exercise tolerance. For severity, patient reportsgrade 2 (>/=140/90). For duration, patient reportshas noted for years. For onset/timing, patient reportsgradual onset. For self care, patient reportsblood pressure goal: 120/70. I changed insurance and haven't had my lisinopril 3-4 months, didn't realize it. BRANDY MILLER PA-C [address] [place], [address], [facility], [place]. 05/13/2025 16:02:00 5 text/htm l ROS as noted in the HPI walk-in; PCP Brandy Miller Patient slipped on a plastic sack last night and fell on a gravel driveway. She landed on her left knee, knee is scraped. She had pain in her upper left leg and hip. She also scrapped her left arm and elbow. Patient is able to walk and states pain is the worst when she tries to get up from a sitting or laying position. ANTOINETTE RANKIN [address] [place], [phone], [facility], L[facility] 06/07/2025 11:14:18 5 text/htm l Musculoskeletal PainReported by PatientHPIFor location, patient reportspain radiating to the buttocksandpain radiating to the legs leftbut reportsleft hip. For quality, patient reportssharp,tingling, anddull. For severity, patient reportsinterferes with sleepandinterferes with work/school. For associated symptoms, patient reportsweak limbs. For duration, patient reportspresent <1 month. For timing, patient reportsconstantandsudden. For context, patient reportstrauma. For alleviating factors, patient reportschanging positionandwarm compress. For aggravating factors, patient reportsmovement/positioning, bending over, andtwisting. For adls affected, patient reportswalking,sweeping,mopp ing,bathing,dressing, andclimbing stairs. WALKIN FOLLOW UP 06-07-25 FALL ON 06-06-25RT [facility] BRANDY MILLER PA-C [address] [place], [address], [facility], L.L[facility]C. 06/08/2025 10:07:22 5 text/htm l ROS as noted in the HPI walk inx 5 days nasal congestion, cough, ARELLANO. sinus pressure, hoarse voice. has taken some otc meds with no relief. has post nasal drainage. ANTOINETTE RANKIN [address] [place], [address], [facility], [facility] 07/11/2025 19:00:04 OBGyn Episode No OBEpisode recorded.
[2025-10-22 22:50] LABS: Hematocrit 50.3 % (36-47); Hemoglobin 17.00 g/dL (11.27-16.99); Mean Corpuscular HGB Conc 33.8 g/dL (30-55); Mean Corpuscular Hemoglobin 29.9 pg (27-33); Mean Corpuscular Volume 88.4 fl (85-98); Nucleated Red Blood Cells % 0 %; Platelet Count 166 10^3/cmm (157-399); Red Blood Count 5.69 10^6/uL (3.85-5.65); White Blood Count 5.50 10^3/uL (3.29-11.43)
[2025-10-22 23:01] VITALS: PULSE 111; RESP 18; O2SAT 94
[2025-10-22 23:05] VITALS: PULSE 105; RESP 18; O2SAT 95
[2025-10-22 23:38] LABS: Alanine Aminotransferase 14 U/L (0-33); Albumin Level 4.2 g/dL (3.5-5.2); Alkaline Phosphatase 67 U/L (35-105); Anion Gap 20.0 (5-19); Aspartate Amino Transferase 29 U/L (0-32); Blood Urea Nitrogen 11 mg/dL (8-23); Calcium 9.3 mg/dL (8.5-10.5); Carbon Dioxide 27 mmol/L (22-29); Chloride 95 mmol/L (98-107); Globulin 3.3 g/dL (1.3-4.6); Glucose 156 mg/dL (65-115); Lipase 15 U/L (13-60); Osmolality Calculated 289 mOsm/kg (285-295); Potassium 4.0 mmol/L (3.5-5.1); Sodium 138 mmol/L (136-145); Total Protein 7.5 g/dL (6.6-8.7)
[2025-10-22] MEDS: methylPREDNISolone sod succ 125 mg/2 mL INJ IVP (23:58)
[2025-10-23] VITALS (15 sets, daily range): BP systolic 94–129; BP diastolic 54–73; PULSE 73–106; RESP 18–19; TEMP 36.4–36.7; O2SAT 90–96; BMI 36.3
--- NOTE | 2025-10-23 00:32 | CTR_ITS ---
PROCEDURE INFORMATION: Exam: CTA Chest With Contrast Exam date and time: 10/23/2025 12:53 AM Age: 80 years old Clinical indication: Shortness of breath; SOB with persistent hypoxia TECHNIQUE: Imaging protocol: Computed tomographic angiography of the chest with contrast. Exam focused on the arteries. 3D rendering (Not supervised by radiologist): MIP and/or 3D reconstructed images were created by the technologist. Radiation optimization: All CT scans at this facility use at least one of these dose optimization techniques: automated exposure control; mA and/or kV adjustment per patient size (includes targeted exams where dose is matched to clinical indication); or iterative reconstruction. Contrast material: OMNI 350; Contrast volume: 70 ml; Contrast route: INTRAVENOUS (IV); COMPARISON: CR (CHEST, ) 10/22/2025 10:41 PM RADIATION DOSE METRICS: Total DLP (mGy-cm): 440.82 FINDINGS: Pulmonary arteries: Normal. No pulmonary emboli. Aorta: Unremarkable. No aortic aneurysm. No aortic dissection. Lungs: Mild diffuse bronchial wall thickening. Scattered small subsegmental level endobronchial opacities in the lower lobes. Negative for bronchiectasis. Negative for peripheral honeycombing. Negative for consolidation. Pleural spaces: Unremarkable. No pneumothorax. No pleural effusion. Heart: Unremarkable. No cardiomegaly. No pericardial effusion. Lymph nodes: Unremarkable. No enlarged lymph nodes. Bones/joints: Unremarkable. No acute fracture. Soft tissues: Unremarkable. CT/CT angio chest PE protcl [id number] IMPRESSION: 1. Negative for pulmonary artery embolism. 2. Consider mild nonspecific bronchial inflammatory changes.
[2025-10-23 00:53] LABS: Lactic Sepsis W/Reflex 2.6 mmol/L (0.5-2.2)
[2025-10-23] MEDS: iohexol 350 mg/mL 500 mL Btl (per mL) IV (00:53)
--- NOTE | 2025-10-23 01:20 | ECG_ITS ---
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
--- NOTE | 2025-10-23 01:20 | CTR_ITS ---
PROCEDURE INFORMATION: Exam: CT Abdomen And Pelvis Without Contrast Exam date and time: 10/23/2025 1:32 AM Age: 80 years old Clinical indication: Nausea and vomiting; Abdominal pain; Generalized; Diffuse abd pain with n/v/d. TECHNIQUE: Imaging protocol: Computed tomography of the abdomen and pelvis without contrast. Radiation optimization: All CT scans at this facility use at least one of these dose optimization techniques: automated exposure control; mA and/or kV adjustment per patient size (includes targeted exams where dose is matched to clinical indication); or iterative reconstruction. COMPARISON: CR XR hip LT 2-3V wo/w pel* [id number] 06/07/2025 9:47 AM RADIATION DOSE METRICS: Total DLP (mGy-cm): 915.32 FINDINGS: Liver: Normal. No mass. Gallbladder and biliary ducts: Normal. No calcified stones. No ductal dilation. Pancreas: Normal. No ductal dilation. Spleen: Normal. No splenomegaly. Adrenal glands: Normal. No mass. Kidneys and ureters: Normal. No hydronephrosis. Stomach and bowel: Unremarkable. No obstruction. No mucosal thickening. Appendix: No evidence of appendicitis. Intraperitoneal space: Unremarkable. No free air. No significant fluid collection. Vasculature: Unremarkable. No abdominal aortic aneurysm. Lymph nodes: Unremarkable. No enlarged lymph nodes. Urinary bladder: Unremarkable as visualized. Reproductive: Absent uterus. Unremarkable adnexa. Bones/joints: The lumbar spine demonstrates marked discogenic and apophyseal joint degenerative changes at multiple levels. Grade 1 L4-L5 spondylosis. Xguy-qh-ihppnktu vertebral body height loss changes at L2, L3, L4 with age indeterminate compression fractures. Negative for pelvic fracture. Moderately severe narrowing bilateral hip joint spaces. Soft tissues: Unremarkable. CT/CT abdomen pelvis wo con [id number] IMPRESSION: Negative for acute abdominopelvic pathology.
[2025-10-23 01:22] LABS: Respiratory Syncytial Virus Ce NEGATIVE (Negative); SARS-CoV-2 PCR NEGATIVE (Negative)
[2025-10-23 01:26] LABS: Reflex Lactate Order REFLEX LACTIC ORDERD
--- NOTE | 2025-10-23 02:20 | ECG_ITS ---
[facility] 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
[2025-10-23] MEDS: levofloxacin-dextrose 5 % 750 MG/150 ML PREMIX 100 MG IV (02:21)
[2025-10-23 02:49] LABS: Troponin(5th) Baseline 17 ng/L (0-10)
[2025-10-23 02:52] LABS: Lactic Acid level (Lactate) 1.8 mmol/L (0.5-2.2)
--- NOTE | 2025-10-23 03:47 | P.HP_ITS ---
Providers/Chief Complaint 2 Primary Care Provider: Brandy Miller Chief Complaint: N/V/D History of Present Illness Valerie Umana is a 80 year old female with a history significant for coronary artery disease, who presents with complaints of dizziness. She states that she started feeling ill approximately 1 week prior to presentation when she had complaints of cough, generalized weakness and achiness as well as decreased appetite. She eventually went to see a clinician where she was told she had bronchitis and was prescribed cefdinir for treatment. After taking this medication, she saw no improvement in her condition. Within the past 24 hours leading up to presentation, she also mentions that she had vomiting of coffee-ground emesis as well as dark black-colored stool. She denies ever having a stomach bleed in the past. Because of the symptoms as well as her dizziness, she decided to go to the ER for further evaluation and management. Of note, she denies any recent known ill contacts Medications/Allergies Home Medications ?Medication ?Instructions ?Recorded ?Confirmed ?Last Taken ?Type aspirin 81 mg tablet,delayed 81 mg PO DAILY 06/29/20 1 12/19/24 06/29/20 History release (Autumn Low Dose Aspirin) clopidogrel 75 mg tablet mg PO 06/29/25 10/18/25 Unkn own History escitalopram oxalate 20 mg tablet mg PO 06/29/2510/18 Unknown History metoprolol succinate 100 mg mg PO 06/29/25 10/18/25 Un known History tablet,extended release 24 hr rosuvastatin 10 mg tablet mg PO 06/29/25 10/18/25 Unkn own History trazodone 50 mg tablet mg PO 06/29/25 10/18/25 Unkn own History cefdinir 300 mg capsule 300 mg PO BID 10 days #20 ca ps 10/18/25 10/18/25 Unknown Rx lisinopril 10 mg tablet mg PO 10/18/25 10/18/25 Unkn own History promethazine-DM 6.25 mg-15 mg/5 mL 10 ml PO Q6H PRN co ugh #200 mL 10/18/25 10/18/25 Unknown Rx oral syrup Allergies Allergy/AdvReac Type Severity Reaction Status Date / Time Penicillins Allergy ALGY-Hives Verified 10/18/25 12:22 PFSH Acute 2 PFSH: Medical History (Updated 10/23/25 @ 03:52 by Juan M Taveras MD) Hyperlipidemia Family History Mother Breast cancer Grandmother Breast cancer Daughter Cancer Social History Smoking and tobacco/nicotine status: former use of tobacco/nicotine Vitals/I&O/Wt Last Vital Signs Temp 97.7 F 10/22/25 22:33 Pulse 105 H 10/23/25 02:32 Resp 18 10/22/25 23:05 BP 108/71 10/23/25 02:32 Pulse Ox 92 10/23/25 02:32 O2 Del Method Room Air 10/23/25 02:03 O2 Flow Rate 2 10/23/25 01:09 10/22/25 10/22/25 10/23/25 14:59 22:59 06:59 Intake Total 0 / 0 Balance 0 / 0 Weight last 48 hrs Weight 94.347 kg Physical Exam 2 Narrative: General: No acute distress. Appears of stated age Cardiovascular: Regular rate and rhythm. No murmurs, rubs, gallops. No peripheral edema Lungs: clear to auscultation bilaterally Abdomen: Soft, nontender, nondistended. Data 10/22/25 22:00 10/22/25 23:13 Micro: Microbiology 10/23/25 01:21 Blood Culture - Preliminary Blood SPECIMEN COLLECTED 10/23/25 01:16 Blood Culture - Preliminary Blood SPECIMEN COLLECTED A&P Assessment and plan 1. Influenza A: - Onset of symptoms was approximately 1 week prior to presentation. However, given her age and physician that warranted presentation to our facility, will initiate renally dosed Tamiflu - Otherwise, provide supportive care - No need for further antibiotics 2. Acute hypoxic respiratory failure: - Currently on supplemental oxygen where she is not uses outside the hospital. Wean as tolerated Plan: She may otherwise continue her routine home medications PDMP PDMP Reviewed: Not Reviewed Attestations 2 Medical Necessity Statement*: Patient will likely need greater than 2 midnights while inpatient to optimize her condition and manage her influenza A Coding Level of Care Code Acute Code for [facility] Diagnoses Influenza A J10.1 Acute hypoxic respiratory failure J96.01
[2025-10-23 09:15] LABS: Troponin 5 6HR 13.74 ng/L (0-10)
[2025-10-23 09:17] LABS: Troponin 5 6HR Delta -3.26 ng/L (0-12)
[2025-10-23] MEDS: metoprolol succinate ER (24 HR) 100 mg Tablet PO (11:46)
[2025-10-23 11:52] LABS: Glucose Urine UA Negative (Normal); Nitrate Urine Negative (Negative)
[2025-10-23 11:54] LABS: Add Urine Microscopic? YES
[2025-10-23 12:04] LABS: Specific Gravity, Urine 1.054 (1.005-1.030); UA Slide Review UA Slide Review Perf
[2025-10-23 17:41] LABS: Troponin T (5th) Once 14 ng/L (0-10)
[2025-10-23 17:43] LABS: Lactate (Lactic Acid level) 1.1 mmol/L (0.5-2.2)
[2025-10-24] VITALS (14 sets, daily range): BP systolic 99–131; BP diastolic 60–85; PULSE 63–100; RESP 16–20; TEMP 36.4–37.1; O2SAT 95–98
[2025-10-24] MEDS: metoprolol succinate ER (24 HR) 100 mg Tablet PO (05:26)
[2025-10-24 06:08] LABS: Hematocrit 39.0 % (36-47); Hemoglobin 12.40 g/dL (11.27-16.99); Mean Corpuscular HGB Conc 31.8 g/dL (30-55); Mean Corpuscular Hemoglobin 29.0 pg (27-33); Mean Corpuscular Volume 91.1 fl (85-98); Nucleated Red Blood Cells % 0 %; Platelet Count 148 10^3/cmm (157-399); Red Blood Count 4.28 10^6/uL (3.85-5.65); White Blood Count 4.68 10^3/uL (3.29-11.43)
[2025-10-24 06:15] LABS: Anion Gap 14.1 (5-19); Blood Urea Nitrogen 15 mg/dL (8-23); Calcium 8.9 mg/dL (8.5-10.5); Carbon Dioxide 29 mmol/L (22-29); Chloride 99 mmol/L (98-107); Creatinine Clr Calc Pharmacy 62.0648; Glucose 119 mg/dL (65-115); Osmolality Calculated 288 mOsm/kg (285-295); Potassium 4.1 mmol/L (3.5-5.1); Sodium 138 mmol/L (136-145)
--- NOTE | 2025-10-24 10:10 | P.PN_ITS ---
Subjective 2 Subjective: Valerie Umana is a 80 year old female with a history significant for coronary artery disease, who presents with complaints of dizziness. She states that she started feeling ill approximately 1 week prior to presentation when she had complaints of cough, generalized weakness and achiness as well as decreased appetite. She eventually went to see a clinician where she was told she had bronchitis and was prescribed cefdinir for treatment. After taking this medication, she saw no improvement in her condition. Within the past 24 hours leading up to presentation, she also mentions that she had vomiting of coffee-ground emesis as well as dark black-colored stool. She denies ever having a stomach bleed in the past. Because of the symptoms as well as her dizziness, she decided to go to the ER for further evaluation and management. Of note, she denies any recent known ill contacts. 10/23/25: Same day update/Progress note: Patient is resting in bed, but diaphoretic. She reports this is normal for her. Respiratory status stable. Denies any vomiting episodes today. I will get a sputum and stool samples if she is able to produce these to assess for blood. 10/24/25: Patient is resting in bed. At time of interview. Daughter at bedside. Patient reports that her breathing has stayed the same but has increased with wheezing inspiratory and expiratory. Respiratory therapy here at bedside for treatment. Patient is still requiring 2 to 3 L O2 and we are working to wean her off prior to discharge. New information is that her was just taken to the hospital in [place] where he was diagnosed with flu and her son has flu as well... She is still continuing her course of Tamiflu. No other complaints at this time. Vitals/I&O/Wt Last Vital Signs Temp 98.1 F 10/24/25 15:48 Pulse 75 10/24/25 16:30 Resp 20 H 10/24/25 16:30 BP 104/66 10/24/25 15:48 Pulse Ox 95 10/24/25 16:30 O2 Del Method Nasal Cannula 10/24/25 16:30 O2 Flow Rate 3 10/24/25 16:30 10/24/25 10/24/25 10/24/25 06:59 14:59 22:59 Intake Total 480 / 1920 960 / 960 Output Total 700 / 700 Balance 480 / 820 260 / 260 Weight last 48 hrs Weight 96.162 kg Weight 96.207 kg Weight 94.347 kg Physical Exam 2 Narrative: General: No acute distress. Appears of stated age Cardiovascular: Regular rate and rhythm. No murmurs, rubs, gallops. No peripheral edema Lungs: Inspiratory and expiratory wheezes, congested, decreased lung sounds bilaterally Abdomen: Soft, nontender, nondistended. Neuro: Denies numbness and tingling Psych: AAOx4, appropriate affect Data 10/24/25 05:43 10/24/25 05:43 Micro: Microbiology 10/23/25 01:21 Blood Culture - Preliminary Blood NEGATIVE TO DATE 10/23/25 01:16 Blood Culture - Preliminary Blood NEGATIVE TO DATE A&P Assessment and plan 1. Influenza A: - Onset of symptoms was approximately 1 week prior to presentation. However, given her age and physician that warranted presentation to our facility, will initiate renally dosed Tamiflu - Otherwise, provide supportive care - No need for further antibiotics - Patient continuing on Tamiflu 2. Acute hypoxic respiratory failure: - Currently on supplemental oxygen where she is not uses outside the hospital. - Wean as tolerated Plan: She may otherwise continue her routine home medications PDMP PDMP Reviewed: Not Reviewed Attestations 2 Medical Necessity Statement*: Patient not expected to stay an additional 2 midnights. Patient is ready for discharge tomorrow if oxygen status is appropriate. Diagnoses Influenza A J10.1 Acute hypoxic respiratory failure J96.01
[2025-10-25 04:00] VITALS: BP 107/73; PULSE 78; RESP 16; TEMP 36.9; O2SAT 95
[2025-10-25] MEDS: metoprolol succinate ER (24 HR) 100 mg Tablet PO (06:47)
[2025-10-25 08:00] VITALS: BP 97/64; PULSE 68; RESP 18; TEMP 36.5; O2SAT 95
--- NOTE | 2025-10-25 09:11 | P.DS_ITS ---
Discharge Providers Date of Admission: 10/23/25 01:25 Date of Discharge: October 25, 2025 Attending Provider at Admission: Juan M Taveras MD Attending Provider at Discharge: Cat Urbina NP Primary Care Provider: Brandy Miller Diagnoses at Discharge Discharge Diagnosis 1. Influenza A: 2. Acute hypoxic respiratory failure: Reason for Visit Reason for Visit: N/V/D Brief History: Admission: Valerie Umana is a 80 year old female with a history significant for coronary artery disease, who presents with complaints of dizziness. She states that she started feeling ill approximately 1 week prior to presentation when she had complaints of cough, generalized weakness and achiness as well as decreased appetite. She eventually went to see a clinician where she was told she had bronchitis and was prescribed cefdinir for treatment. After taking this medication, she saw no improvement in her condition. Within the past 24 hours leading up to presentation, she also mentions that she had vomiting of coffee-ground emesis as well as dark black-colored stool. She denies ever having a stomach bleed in the past. Because of the symptoms as well as her dizziness, she decided to go to the ER for further evaluation and management. Of note, she denies any recent known ill contacts. Hospital Course Hospital Course 1. Influenza A: - Onset of symptoms was approximately 1 week prior to presentation. However, given her age and physician that warranted presentation to our facility, will initiate renally dosed Tamiflu - Otherwise, provide supportive care - No need for further antibiotics - Patient continuing on Tamiflu 2. Acute hypoxic respiratory failure: - Currently on supplemental oxygen where she is not uses outside the hospital. - Evaluated for home oxygen, does not qualify, room air saturation greater than 90%. Discharge: Discharge is in stable condition to finish course of Tamiflu. Did not qualify for home oxygen, room air oxygen saturation greater than 90%. Patient is advised to follow-up with primary care provider in 1 to 2 days of discharge. All questions and concerns addressed to the patient prior to discharge. Physical Exam Narrative: General: No acute distress. Appears of stated age Cardiovascular: Regular rate and rhythm. No murmurs, rubs, gallops. No peripheral edema Lungs: Clear bilaterally to auscultation, congestion, decreased lung sounds at the bases. Abdomen: Soft, nontender, nondistended. Neuro: Denies numbness and tingling Psych: AAOx4, appropriate affect Discharge Data Studies Completed and Pending Completed Studies During Hospitalization Category Date Time Status CT abdomen pelvis wo con [id number] Stat Cat Scan 10/23/25 01:[address] angio chest PE protcl [id number] Stat Cat Scan 10/23/25 00:32 Completed XR chest 1V portable [id number] Stat Exams 10/22/25 22:38 Completed Pending at discharge Category Date Time Status Blood Culture Stat Lab 10/23/25 01:21 Results Fecal Occult Blood [Immunochemical Fecal OCB] Routine Lab 10/23/25 17:48 Uncollected Immunochemical Fecal OCB Stat Lab 10/22/25 22:39 Uncollected Sputum Culture and Gram Stain Routine Lab 10/23/25 17:48 Uncollected Radiology Impressions Chest X-Ray 10/22/25 22:38 IMPRESSION: No acute findings. Chest CTA 10/23/25 00:32 IMPRESSION: 1. Negative for pulmonary artery embolism. 2. Consider mild nonspecific bronchial inflammatory changes. Abdomen/Pelvis CT 10/23/25 01:20 IMPRESSION: Negative for acute abdominopelvic pathology. Laboratory Results WBC 4.68 10^3/uL (3.29-11.43) 10/24/25 05:43 RBC 4.28 10^6/uL (3.85-5.65) 10/24/25 05:43 Hgb 12.40 g/dL (11.27-16.99) 10/24/25 05:43 Hct 39.0 % (36-47) 10/24/25 05:43 MCV 91.1 fl (85-98) 10/24/25 05:43 MCH 29.0 pg (27-33) 10/24/25 05:43 MCHC 31.8 g/dL (30-55) 10/24/25 05:43 RDW 12.6 % (12.1-15.1) 10/24/25 05:43 Plt Count 148 10^3/cmm (157-399) L 10/24/25 05:43 MPV 10.4 fL (7.4-10.4) 10/24/25 05:43 Neut % (Auto) 70.2 % 10/24/25 05:43 Lymph % (Auto) 19.2 % 10/24/25 05:43 [place] % (Auto) 10.0 % 10/24/25 05:43 Eos % (Auto) 0.0 % 10/24/25 05:43 Baso % (Auto) 0.2 % 10/24/25 05:43 Neut # (Auto) 3.28 10^3/uL (1.8-7.7) 10/24/25 05:43 Lymph # (Auto) 0.9 10^3/uL (0.8-4.8) 10/24/25 05:43 [place] # (Auto) 0.5 10^3/uL (0.2-0.9) 10/24/25 05:43 Eos # (Auto) 0.0 10^3/uL (0.0-0.8) 10/24/25 05:43 Baso # (Auto) 0.0 10^3/uL (0.0-0.1) 10/24/25 05:43 Nucleated RBC % (auto) 0 % 10/24/25 05:43 Nucleated RBCs # 0.0 /100WBC 10/24/25 05:43 Sodium 138 mmol/L (136-145) 10/24/25 05:43 Potassium 4.1 mmol/L (3.5-5.1) 10/24/25 05:43 Chloride 99 mmol/L (98-107) 10/24/25 05:43 Carbon Dioxide 29 mmol/L (22-29) 10/24/25 05:43 Anion Gap 14.1 (5-19) 10/24/25 05:43 BUN 15 mg/dL (8-23) 10/24/25 05:43 Creatinine 0.7 mg/dL (0.5-0.9) 10/24/25 05:43 GFR Calculation Not Reportable 10/24/25 05:43 Glucose 119 mg/dL (65-115) H 10/24/25 05:43 Calculated Osmolality 288 mOsm/kg (285-295) 10/24/25 05:43 Lactic Acid 2.6 mmol/L (0.5-2.2) H 10/22/25 23:13 Lactic Acid (Sepsis) 1.8 mmol/L (0.5-2.2) 10/23/25 02:22 Lactate 1.1 mmol/L (0.5-2.2) 10/23/25 16:43 Calcium 8.9 mg/dL (8.5-10.5) 10/24/25 05:43 Total Bilirubin 0.5 mg/dL (0.15-1.2) 10/22/25 23:13 AST 29 U/L (0-32) 10/22/25 23:13 ALT 14 U/L (0-33) 10/22/25 23:13 Alkaline Phosphatase 67 U/L (35-105) 10/22/25 23:13 Troponin T 5th Gen ng/L 14 ng/L (0-10) H 10/23/25 16:43 Troponin T Baseline 17 ng/L (0-10) H 10/23/25 02:22 Troponin T 60 Minute 15.14 ng/L (0-10) H 10/23/25 03:32 Delta Troponin T -1.86 ABS# (0-10) L 10/23/25 03:32 Troponin T Hi Sens 6Hr 13.74 ng/L (0-10) H 10/23/25 08:50 Troponin T Hi Sens 6Hr Delta -3.26 ng/L (0-12) L 10/23/25 08:50 Total Protein 7.5 g/dL (6.6-8.7) 10/22/25 23:13 Albumin 4.2 g/dL (3.5-5.2) 10/22/25 23:13 Globulin 3.3 g/dL (1.3-4.6) 10/22/25 23:13 Lipase 15 U/L (13-60) 10/22/25 23:13 Urine Color Yellow (Yellow) 10/23/25 11:05 Urine Appearance Clear (CLEAR) 10/23/25 11:05 Urine pH 6.0 (5-7) 10/23/25 11:05 Ur Specific [place] 1.054 (1.005-1.030) H 10/23/25 11:05 Urine Protein 1+ (Negative) A 10/23/25 11:05 Urine Glucose (UA) Negative (Normal) 10/23/25 11:05 Urine Ketones 2+ (Negative) H 10/23/25 11:05 Urine Blood Trace (Negative) A 10/23/25 11:05 Urine Nitrate Negative (Negative) 10/23/25 11:05 Urine Bilirubin Negative (Negative) 10/23/25 11:05 Urine Urobilinogen 1.0 mg/dL (Negative) 10/23/25 11:05 Ur Leukocyte Esterase Negative (Negative) 10/23/25 11:05 Urine RBC 6-10 /hpf (0-2) 10/23/25 11:05 Urine WBC 0-5 /hpf (0-5) 10/23/25 11:05 Ur Squamous Epith Cells 0-5 /hpf (0-5) 10/23/25 11:05 Amorphous Sediment Not Reportable 10/23/25 11:05 Urine Bacteria None seen /hpf (NONE) 10/23/25 11:05 Hyaline Casts 17.37 /lpf 10/23/25 11:05 Influenza A (PCR) Positive (Negative) 10/23/25 00:04 Influenza Type B (PCR) Negative (Negative) 10/23/25 00:04 RSV (PCR) Negative (Negative) 10/23/25 00:04 SARS-CoV-2 (PCR) Negative (Negative) 10/23/25 00:04 Vitals Last Vital Signs Temp 97.7 F 10/25/25 08:00 Pulse 68 10/25/25 08:00 Resp 18 10/25/25 08:00 BP 97/64 10/25/25 08:00 Pulse Ox 95 10/25/25 08:00 O2 Del Method Nasal Cannula 10/25/25 08:00 O2 Flow Rate 3 10/24/25 19:42 Discharge Plan Discharge Patient Disposition: Home Condition: Stable Prescriptions: New ascorbic acid (vitamin C) [Vitamin C] 500 mg Tablet 500 mg PO DAILY 30 Days Qty: 30 0RF zinc gluconate 50 mg Tablet 50 mg PO DAILY 30 Days Qty: 30 0RF oseltamivir [Tamiflu] 30 mg Capsule 30 mg PO BID 5 Days Qty: 10 0RF Continued promethazine-DM 6.25-15 mg/5 mL syrup 10 ml PO Q6H PRN (Reason: cough) Qty: 200 0RF cefdinir 300 mg capsule 300 mg PO BID 10 Days Qty: 20 0RF aspirin [Autumn Low Dose Aspirin] 81 mg Tablet,Delayed Release (Dr/Ec) 81 mg PO DAILY rosuvastatin 10 mg tablet 10 mg PO BEDTIME metoprolol succinate 100 mg tablet extended release 24 hr 100 mg PO DAILY clopidogrel 75 mg tablet 75 mg PO DAILY escitalopram oxalate 20 mg tablet 20 mg PO DAILY trazodone 50 mg tablet 50 mg PO BEDTIME Held lisinopril 10 mg tablet 10 mg PO DAILY Hold Instructions: Resume on 10/28/25. Hold in the setting of hypotension, resume under the direction of primary care provider. furosemide 20 mg tablet 20 mg PO DAILY Hold Instructions: Resume on 10/28/25. Resume as directed under the care of primary care provider Discharge Order = DC NOW: Discharge Order (Routine); Ordered 10/25/25 Ordered By: Cat Urbina Referrals: Brandy Miller PA [Primary Care Provider, [facility] Chief Clerk] - 10/29/25 10:20 am Referral Note: Discharge Diet: Usual diet Discharge Activity: Resume usual activity Patient Instructions: Oseltamivir (By mouth), Influenza (GEN), Using Oxygen at Home (GEN), Opioid Safety, Patient Portal & [place] Instructions Discharge Attestations Time Spent in Discharge Care*: greater than 30 min Quality Metrics Clinical Quality Measures [ No reported AMI, CVA or VTE this stay] Coding Level of Care Code 59849 Diagnoses Influenza A J10.1 Acute hypoxic respiratory failure J96.01
--- NOTE | 2025-10-25 09:19 | PC.CHAP ---
Pastoral Care Encounter/Spiritual Assessment Type of Contact [] Declined clinical lab scientist visit [] Patient/Family/Request visit [] Outpatient visit [] Follow-up visit [] Physician referral [] Code/Alert [x] Routine visit [] Staff referral [] Actively dying [] Patient sleeping [] Family support [] [] Out of room [] Palliative care [] [] Receiving care in room [] Pre-surgical visit [] Trauma [] Long length of stay [] ICU visit [] Other: Relational/Emotional Strength [] Patient feels connected with others/family/visitors/staff [] Distress [] Loneliness/isolation [] Abandonment Spirituality of Patient [x] Person of [place] [] Attends Congregation of their [place] [x] Believes in Prayer [] Reads Bible or Restoration materials [] There are Spiritual issues to be addressed Can Worker Interventions [x] Prayer [x] Active listening [] Non-anxious presence [] Spiritual/emotional support [] Crisis/trauma care [] Spiritual counseling [] Bereavement support [] Provided bereavement packet [x] Provided Bible/devotional materials [] Provided toy/stuffed animal, coloring book to patient or family member [] Provided Communion [] Anointing/[place] [] Salvation [x] Completed spiritual assessment [] Other: Impact on Illness or Injury [] Angry [] Fearful [] Anxious [] Often cries [] Exhaustion [] Unable to work [] Unable to attend restorationism [] Unable to walk/stand [] Unable to read [] Unable to drive [] Unable to eat/drink [] Unable to sleep [] Unable to be with family [] Patient intubated [] Other: Summary Time spent with patient 5 min
[2025-10-25 11:02] VITALS: O2SAT 92; O2SAT 95
[2025-10-25 11:19] VITALS: BP 119/79; PULSE 65; RESP 17; TEMP 36.6; O2SAT 95
[2025-10-25 12:40] VITALS: BP 119/79; PULSE 65; RESP 17; TEMP 36.6; O2SAT 95
== END 2025-10-25 12:15 | disposition home or self-care (01) | DRG 193 ==
LOC: ER 10-23 05:17 → MEDSURG 10-23 06:58
PROVIDERS: Clinical Nurse Specialist Acute Care; Admitting Provider Family Medicine; Emergency Provider Family Medicine; PCP Physician Assistant; Visit Provider Registered Nurse
DX: J10.1 Influenza due to other identified influenza virus with other respiratory manifestations (principal); J96.01 Acute respiratory failure with hypoxia; I25.10 Atherosclerotic heart disease of native coronary artery without angina pectoris; I48.91 Unspecified atrial fibrillation; E78.5 Hyperlipidemia, unspecified; R19.5 Other fecal abnormalities; Z79.82 Long term (current) use of aspirin; Z79.02 Long term (current) use of antithrombotics/antiplatelets; Z87.891 Personal history of nicotine dependence
CPT/HCPCS: 36415; 71045; 71275; 74176; 80048; 80053; 81001; 83605; 83690; 84484; 85025; 87040; 87637; 93005; 94640; 94664; 94760; 96365; 96372; 96375; 97165; 99285; J1650; J1956; J2919; J7030; J7613; J9999